=== PATIENT | male | born 1945 ===

== ENCOUNTER 2018-07-14 08:40 | Inpatient (IN) | payer OTHER ==
[2018-07-19] MEDS ORDERED: ACETAMINOPHEN 500 MG TAB PO PRN (21:38)
[2018-07-19] MEDS ORDERED: BISACODYL 10 MG SUPP PR PRN (21:42)
[2018-07-19] MEDS ORDERED: POLYETHYLENE GLYCOL 3350 17 GM PKT PO PRN (21:42)
[2018-07-19] MEDS ORDERED: SENNOSIDES 1 TAB PO PRN (21:43)
[2018-07-19] MEDS: ENALAPRIL MALEATE 5 MG TAB PO SCH (21:56)
[2018-07-20 08:30] LABS: PLATELET COUNT 162 10^3/uL (150-400)
[2018-07-20] MEDS: ATORVASTATIN CALCIUM 40 MG TAB PO SCH (08:59)
[2018-07-20] MEDS: ASPIRIN EC 81 MG TAB PO SCH (09:00)
[2018-07-20] MEDS ORDERED: Herbals/Supplements -Info Only PO SCH (09:00)
[2018-07-20] MEDS: METOPROLOL SUCCINATE XR 25 MG TAB PO SCH (09:01)
--- NOTE | 2018-07-20 10:50 | PDGENHP ---
History and Physical History and Physical: Post admission physician evaluation and rehabilitation treatment plan Date Admit: 07/19/2018 Date and Time Eval: 07/20/2018 at 10:00 a.m. Referring Facility: [facility] Referring MD: Dr. 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 He was initially treated at the [facility] where he had an NIH stroke scale of 24. Stroke was demonstrated on MRI, patient was treated with IV tPA 2 hr after onset of symptoms and had a follow-up mechanical thrombectomy with partial revascularization. The cause of the embolic stroke is thought to be atherosclerotic or cardioembolic. It was complicated by small secondary hemorrhagic transformation. His course was also complicated by pneumonia of unknown etiology or bacteria treated with IV antibiotics with resolution. Additional studies included carotid and vertebral artery Doppler was stenosis of the right internal carotid artery at 50%. Recommending follow up with repeat Doppler in 1 year. 24 hr rhythm monitoring has not shown paroxysmal atrial fibrillation. He had a transthoracic echocardiogram that was reportedly normal. He was admitted to [facility] on June 19, 2018 after exhibiting progressive improvement of his right-sided hemiplegia. He had persistent global aphasia and right-sided weakness. In rehabilitation, he improved his right-sided strength but was still noted to have facial asymmetry. He had severe aphasia, and it was unclear how much safety awareness he had. From a functional standpoint he was walking without supervision and without assistive devices. He was not yet doing stairs which are required at his house. He was reportedly doing ADLs independently, but IADLs are unknown. He has severe global aphasia with stereotyped speech. He was displaying poor awareness of his speech issues. They reported that his yes/no answers were almost fully reliable. 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 Limited speech therapy in Salvadorean was available. He was reportedly incontinent in bladder, continent in bowel. He was eating food of a normal texture without aspiration. He had a week long heart monitor that showed 3 self resolving episodes of ventricular tachycardia and Cardiology consult recommended the use of metoprolol 12.5 mg daily and the echocardiogram did not show any dyskinesia but they recommended a follow-up nuclear stress test. Receiving aspirin for prophylaxis. They report that hypertension was managed with 5 mg of enalapril. They also note that on June 24 he had signs of sepsis of unknown origin thought to be related to a prostatitis when blood cultures came back positive for multi sensitive E coli that was treated with oral ciprofloxacin, treated for 3 weeks ending July 15. Oral maxillofacial consult determined that it was not facial in origin. There was some question about a history of prostate cancer biopsied 6 years ago followed up with PSA monitoring but this history was not complete. The patient was to return to the [place] with the help of his , intensive speech therapy and multidisciplinary evaluation for safety. Functional History: Reportedly independent in all aspects and driving. Please see above for current functional status. ROS: Unable to complete accurately, but determined that the patient denies any new shortness of breath or chest pain, any new numbness, tingling, or weakness. Remainder of review systems could not be completed because of aphasia. Precautions: None Active Comorbidities: Hemiparesis PMH/PSH: History of appendectomy, meniscectomy, cholecystectomy, hypertension. also confirms a history of prostate cancer monitored by PSA by Dr. Mixon. denies a history of nephrolithiasis. Family Hx: No neurological issues in the family Social Hx: Unable to obtain from the patient because of aphasia. Reportedly , lives in the [place] area, has stairs in the house. confirms that she is available for assistance after discharge, May requested additional assistance and outpatient therapies. Endorses that the patient drinks half a bottle wine daily plus a shot of whiskey at night or 2-[address] of half bottle of wine. They live in [facility]. Denies tobacco use or drug use. Allergies: No known drug allergies, per spouse Pre-Hosp Meds: Unknown, spouse asked us to check with Dr. Mixon Admit Meds: Aspirin 100 mg once daily in the morning orally Amlodipine 2.5 mg once daily orally Atorvastatin 80 mg once daily in the morning Enalapril 5 mg once daily in the evening Metoprolol extended release 12.5 mg once daily in the morning Fig syrup 15 mL once daily in the morning Acetaminophen equivalent 1000 mg p.r.n. Maximum 4 times a day Picosulfate 5 mg p.r.n. Maximum twice daily Physical Exam: PHYSICAL EXAM: VS: Reviewed, slightly hypertensive at 145/80, otherwise normal and please see the medical record GEN: Normally developed, resting in bed, NAD EYES: Anicteric, PERRL EARS, NOSE, MOUTH, THROAT: MMM, normal dentition CV: Heart RRR, normal S1 and S2, no murmurs appreciated, no LE edema, extremities warm. No carotid bruits. RESP: Breathing comfortably, lungs CTAB no wrr GI: Abd with +BS, non distended : No vidales in place MSK: no contracture noted, no gross deformities SKIN: no rashes or skin breakdown noted PSYCH: appropriate, pleasant, cooperative; normal mood, affect and thought content HEME/LYMPH: No supraclavicular lymphadenopathy NEURO: Mental status: The patient is alert; he had severe global aphasia, expressive appeared worse than receptive. He was able to understand simple phrases and answer yes no questions with fairly good reliability, approximately 75%. His speech was stereotyped. He did not understand complex phrases. Cranial Nerves II-XII were intact and symmetric bilaterally, including no diplopia, with the exception of a mild facial droop on the right. Strength was 5/5 and on the left-sided biceps, triceps, wrist extensors, finger flexors, finger abductors, as well as hip flexors, knee extensors, ankle dorsiflexors, plantarflexors, and EHL. On the right side, strength was approximately 4/5 in the lower limb in those muscles, 5/5 in the upper limb. Reflexes were 2+ symmetric in bi, tri, BR, patella, and absent at the achilles with absent Hoffmans. No spasticity. Sensation was intact to light touch in the left-sided hand and foot, but decreased on the right side per his report. Rapid alternating movements was decreased on the right compared to the left. Finger to nose testing was normal without dysmetria or tremor. He was unable to do a three-part command. He participated in one-step commands fairly easily. Results Review: Imaging reports were reviewed but in Urdu, up loading images to PACS for viewing. Assessment and Plan: This is a very pleasant 72-year-old male being repatriated to the [place] after suffering a left-sided MCA stroke on June 02, 2018, in [place] status post IV tPA and mechanical thrombectomy with mild hemorrhagic transformation, now status post some inpatient rehabilitation in [place]. He has impairments in cognition and communication as well as significant concern for safety awareness. Impairments in mobility and self- care are higher level impairments mostly involving stair navigation and IADLs. For safe discharge home, he will need intensive therapy from PT, OT, and speech at 60 min per day 5-7 days per week for duration of 5-7 days with transition to outpatient speech therapy at a minimum with possibly other services involved as well. Goal is to transfer home with supervision from his spouse. We will also coordinate medical hand off to care providers in the [facility]. Status post left-sided MCA stroke on June 02, 2018 with right-sided hemiparesis, global aphasia, impairments in mobility, self-care, cognition. Embolic stroke with unclear etiology with asymptomatic carotid stenosis, no clear cardiac cause with no atrial fibrillation noted on 1 week of monitoring, normal echocardiogram * PT, OT, speech as noted above to treat impairments in mobility, self-care, and cognition and communication. * Established best practices for communicating with patient and for patient to make needs known * Safety evaluation * Plan to discuss fluoxetine for stroke recovery with patient's family Secondary stroke prevention including aspirin and blood pressure control * Follow-up vertebral and carotid artery Doppler in May 2019 * Continue atorvastatin 80 mg daily * Aspirin daily Cardiac issues: Etiology of stroke was unclear. Noted to have some runs of ventricular tachycardia on 1 week of monitoring and was started on a beta- stephen. Outside ECG in hard chart for reference. * Continue metoprolol for now, 12.5 mg daily * Patient will need a myocardial perfusion scan or nuclear stress test pr discharge recommendations * Follow-up with PCP and Cardiology in the [facility] to assess the plan * Note that extensive records from prior hospitalizations are included an electronic format with the hard chart Hypertension, primary: Noted to be hypertensive and notes indicate that is controlled with enalapril 5 mg daily, however amlodipine 2.5 mg daily was also on the discharge medications * Continue blood pressure control with amlodipine 2.5 mg daily in the morning and enalapril 5 mg once daily * Monitor, adjust medications as needed * Note that he is also on metoprolol 12.5 mg daily as well Bladder incontinence: Unclear etiology at this point, could be related to stroke, benign prostatic hypertrophy, or possible history of prostate cancer with complication * Obtain more information from family * Check postvoid residuals * Follow up with PCP regarding possible history of prostate cancer Anemia: Noted on admission labs, mild, etiology unknown * Checking reticulocyte count ID: History of E coli bacteremia with suspected prostatic origin treated with IV ceftriaxone on oral ciprofloxacin. History of prostate cancer followed by Dr. Byrne. * Monitor and try to get additional history on prostate. Code Status: Full Proph: No need for DVT prophylaxis at this point as he has relatively good mobility. Continue to monitor closely Skin: No skin breakdown. Continue to monitor closely ELOS/ Dispo: 5-7 days, goal to discharge home with family and caregivers assistance. Goal for outpatient therapies. Contacted Dr. Byrne's office for recent notes, to coordinate care. Awaiting fax. The patient is medically stable for participation in inpatient rehabilitation. I have reviewed the Preadmission Screen, and do not identify any relevant changes in the patients status since this was completed. The patient is at high risk for falls, aspiration, possibly poor safety awareness. Rehab plan above to address. A total of 120 min was spent on the floor in the care of the patient, the majority of which was spent in the counseling and coordination of care regarding [place], clarifying medical history, counseling family and patient about rehabilitation.
--- NOTE | 2018-07-20 12:28 | PDOREHIP ---
Admission [facility] - Admission - 3 Day Assessment Period Admission Date/Day 1: 07/19/18 Day 2: 07/20/18 Day 3: 07/21/18 - Active Diagnoses Comorbidities and Co-existing Conditions at Admission: 74639. None of the Above - Skin Conditions Unhealed Pressure Ulcer (1 or more/Stage 1 or >)-Admission: 0. No
[2018-07-20] MEDS: ENALAPRIL MALEATE 5 MG TAB PO SCH (19:57)
[2018-07-21] MEDS: ASPIRIN EC 81 MG TAB PO SCH (09:05)
[2018-07-21] MEDS: ATORVASTATIN CALCIUM 40 MG TAB PO SCH (09:05)
[2018-07-21] MEDS: METOPROLOL SUCCINATE XR 25 MG TAB PO SCH (09:06)
--- NOTE | 2018-07-21 16:11 | SOAPPROG ---
SOAP Progress Note Assessment/Plan: Assessment: 72-year-old male s/p left MCA stroke June 02, 2018, in [place] status post IV tPA and mechanical thrombectomy with mild hemorrhagic transformation, now status post some inpatient rehabilitation in [facility]. Initiating intensive therapy from PT, OT, and speech at 60 min per day 5-7 days per week for duration of 5-7 days with transition to outpatient speech therapy at a minimum with possibly other services involved as well. Status post left-sided MCA embolic stroke on June 02, 2018 with mild right hemiparesis, mild cognitive impairment and severe global aphasia. * Initial FIM this date is 88. Patient is I with mobility in his room and will soon be independent on the unit. Good prognosis ofr independence with stairs before D/C. He is Independent with self care, grooming and hygiene and dressing. Mild residual hand weakness not significantly impacting function. * Cont PT, OT, speech as noted above to treat impairments in mobility, self-care , and cognition and communication. * Established best practices for communicating with patient and for patient to make needs known * Impairments in mobility and self-care are higher level impairments mostly involving stair navigation and IADLs. Cont Safety evaluation. Aphasia: Extreme expressive > receptive language ability. He needs context. Also with severe speech apraxia. Cont ST. Anticipate outpt speech therapy needs. Secondary stroke prevention including aspirin and blood pressure control * Follow-up vertebral and carotid artery Doppler in May 2019 * Continue atorvastatin 80 mg daily * Aspirin daily Cardiac issues: Etiology of stroke unclear. Some runs of ventricular tachycardia on 1 week of monitoring and so was started on a beta-stephen. No Afib. Outside ECG in hard chart for reference. * Continue metoprolol for now, 12.5 mg daily * Patient will need a myocardial perfusion scan or nuclear stress test pr discharge recommendations * Follow-up with PCP and Cardiology in the [place] to assess the plan * Note that extensive records from prior hospitalizations are included an electronic format with the hard chart Hypertension, primary: Noted to be hypertensive and notes indicate that is controlled with enalapril 5 mg daily, however amlodipine 2.5 mg daily was also on the discharge medications * Continue blood pressure control with amlodipine 2.5 mg daily in the morning and enalapril 5 mg once daily. Today 119-141/67-70 * Monitor, adjust medications as needed * Note that he is also on metoprolol 12.5 mg daily Bladder incontinence: Unclear etiology at this point, could be related to stroke, benign prostatic hypertrophy, or possible history of prostate cancer with complication * Obtain more information from family * Check postvoid residuals * Follow up with PCP regarding possible history of prostate cancer Anemia: Hgb 12.2 noted on admission labs, mild, etiology unknown. Retic count WNL 2.28% ID: History of E coli bacteremia with suspected prostatic origin treated with IV ceftriaxone on oral ciprofloxacin. * History of prostate cancer followed by Dr. Byrne. * Monitor and try to get additional history on prostate. Code Status: Full Proph: No need for DVT prophylaxis at this point as he is adequately mobile. Continue to monitor closely Skin: No skin breakdown. Continue to monitor closely ELOS/ Dispo: 5-7 days, goal to discharge home with family and caregivers assistance and supervision, and transition to outpatient therapies, PT, OT and ST. He will also benefit fro OT prior to consideration for return to [place]. Inpatient multidisciplinary staffing was attended. A total of 60 min was spent on the floor in the care of the patient, the majority of which was spent in the counseling and coordination of care regarding transition from inpatient to outpatient given his quick rise to independence in mobility and self-care. 07/21/18 16:22 Subjective: No distress, participating in therapy No F/C/CP/SOB/N/V/D/C Anxious regarding incontinence at HS, which makes it hard for him to sleep. Objective: Vital Signs Temp Pulse Resp BP Pulse Ox 36.8 C 63 16 119/70 93 07/21/18 05:30 07/21/18 09:06 07/21/18 05:24 07/21/18 09:06 07/21/18 05:24 Laboratory Results 07/20/18 06:20 07/20/18 06:20 07/20/18 07/21/18 07/22/18 05:59 05:59 05:59 Intake Total 500 1000 500 Output Total 300 600 Balance 200 400 500 Physical Exam - Physical Exam General Appearance: alert, no apparent distress Neck: supple Respiratory: lungs clear Cardiac/Chest: regular rate, rhythm Skin: normal color, warm/dry Neuro/Psych: alert, normal mood/affect, abnormal gait (slight R foot drop. ), aphasia (severe), motor weakness (mild R hemiparesis), cognition abnormalities, speech abnormalities (apraxia), depressed affect (anxious) ICD10 Worksheet Patient Problems: Problems Problem Status Onset Aphasia Acute Cerebrovascular accident (CVA) involving left middle cerebral artery territory Acute
[2018-07-21] MEDS: ENALAPRIL MALEATE 5 MG TAB PO SCH (20:44)
[2018-07-22] MEDS: ASPIRIN EC 81 MG TAB PO SCH (07:59)
[2018-07-22] MEDS: ATORVASTATIN CALCIUM 40 MG TAB PO SCH (07:59)
[2018-07-22] MEDS: METOPROLOL SUCCINATE XR 25 MG TAB PO SCH (07:59)
--- NOTE | 2018-07-22 12:33 | SOAPPROG ---
SOAP Progress Note Assessment/Plan: Assessment: 72-year-old male s/p left MCA stroke June 02, 2018, in [place] status post IV tPA and mechanical thrombectomy with mild hemorrhagic transformation, Status post left-sided MCA embolic stroke on June 02, 2018 with mild right hemiparesis, mild cognitive impairment and severe global aphasia. * Initial FIM this date is 88. Patient is I with mobility in his room and will soon be independent on the unit. Good prognosis ofr independence with stairs before D/C. He is Independent with self care, grooming and hygiene and dressing. Mild residual hand weakness not significantly impacting function. * Cont PT, OT, speech as noted above to treat impairments in mobility, self-care , and cognition and communication. * Established best practices for communicating with patient and for patient to make needs known * Impairments in mobility and self-care are higher level impairments mostly involving stair navigation and IADLs. Cont Safety evaluation. Aphasia: Extreme expressive > receptive language ability. He needs context. Also with severe speech apraxia. Cont ST. Anticipate outpt speech therapy needs. Secondary stroke prevention including aspirin and blood pressure control * Follow-up vertebral and carotid artery Doppler in May 2019 * Continue atorvastatin 80 mg daily * Aspirin daily Cardiac issues: Etiology of stroke unclear. Some runs of ventricular tachycardia on 1 week of monitoring and so was started on a beta-stephen. No Afib. Outside ECG in hard chart for reference. * Continue metoprolol for now, 12.5 mg daily * Patient will need a myocardial perfusion scan or nuclear stress test pr discharge recommendations * Follow-up with PCP and Cardiology in the [place] to assess the plan * Note that extensive records from prior hospitalizations are included an electronic format with the hard chart Hypertension, primary: Noted to be hypertensive and notes indicate that is controlled with enalapril 5 mg daily, however amlodipine 2.5 mg daily was also on the discharge medications * Continue blood pressure control with amlodipine 2.5 mg daily in the morning and enalapril 5 mg once daily. Today 119-141/67-70 * Monitor, adjust medications as needed * Note that he is also on metoprolol 12.5 mg daily Bladder incontinence initially now transitioning into frequent voiding (~6times overnight) of low volumes at HS, and retention (high PVR's ~150cc after 150cc void)). Incontinence was likely overflow. Pt with known Prostate CA (treatment hx unclear) with rising PSA over past year monitored by his PCP. Unclear if there is prior hx of BPH, incontinence or retention. * Initiate trial of flomax to see if there is change in PVR's, urinary frequency and quality of sleep * Obtain more information from family * Follow up with PCP regarding treatment plan for prostate cancer Anemia: Hgb 12.2 noted on admission labs, mild, etiology unknown. Retic count WNL 2.28% ID: History of E coli bacteremia with suspected prostatic origin treated with IV ceftriaxone on oral ciprofloxacin. * History of prostate cancer followed by Dr. Byrne. * Monitor and try to get additional history on prostate. Code Status: Full Proph: No need for DVT prophylaxis at this point as he is adequately mobile. Continue to monitor closely Skin: No skin breakdown. Continue to monitor closely ELOS/ Dispo: 5-7 days, goal to discharge home with family and caregivers assistance and supervision, and transition to outpatient therapies, PT, OT and ST. He will also benefit fro OT prior to consideration for return to [place]. Inpatient multidisciplinary staffing was attended. A total of 60 min was spent on the floor in the care of the patient, the majority of which was spent in the counseling and coordination of care regarding transition from inpatient to outpatient given his quick rise to independence in mobility and self-care. 07/22/18 12:26 Subjective: anxious regarding urinary frequency and poor sleep No F/C/CP/SOB/N/V/D/ Objective: Vital Signs Temp Pulse Resp BP Pulse Ox 36.5 C 66 14 112/72 92 07/22/18 07:48 07/22/18 07:59 07/22/18 07:48 07/22/18 07:59 07/22/18 07:48 Laboratory Results 07/20/18 06:20 07/20/18 06:20 07/21/18 07/22/18 07/23/18 05:59 05:59 05:59 Intake Total 1000 742 340 Output Total 600 150 Balance 400 742 190 Physical Exam - Physical Exam General Appearance: alert, no apparent distress Neck: supple Respiratory: lungs clear Cardiac/Chest: regular rate, rhythm Abdomen: normal bowel sounds, non-tender Skin: normal color, warm/dry Extremities: No pedal edema, No calf tenderness Neuro/Psych: alert, normal mood/affect, oriented x 3, aphasia, motor weakness ( slight R hemiparesis. Independent with mobility) ICD10 Worksheet Patient Problems: Problems Problem Status Onset Aphasia Acute Cerebrovascular accident (CVA) involving left middle cerebral artery territory Acute
[2018-07-22] MEDS: TAMSULOSIN HCL 0.4 MG CAP PO SCH (21:04)
[2018-07-22] MEDS: ENALAPRIL MALEATE 5 MG TAB PO SCH (21:04)
[2018-07-23] MEDS: ASPIRIN EC 81 MG TAB PO SCH (08:10)
[2018-07-23] MEDS: ATORVASTATIN CALCIUM 40 MG TAB PO SCH (08:10)
[2018-07-23] MEDS: METOPROLOL SUCCINATE XR 25 MG TAB PO SCH (08:10)
--- NOTE | 2018-07-23 14:52 | SOAPPROG ---
SOAP Progress Note Assessment/Plan: Assessment: 72-year-old male s/p left MCA stroke June 02, 2018, s/p IV tPA and mechanical thrombectomy with mild hemorrhagic transformation, Status post left-sided MCA embolic stroke on June 02, 2018 with mild right hemiparesis, mild cognitive impairment and severe global aphasia. * Initial FIM 07/21 is 88. Patient is I with mobility in his room and will soon be independent on the unit. Good prognosis for independence with stairs before D/C. He is Independent with self care, grooming and hygiene and dressing. Mild residual hand weakness not significantly impacting function. * Cont PT, OT, speech as noted above to treat impairments in mobility, self-care , and cognition and communication. * Established best practices for communicating with patient and for patient to make needs known, still challenging. * Impairments in mobility and self-care are higher level impairments mostly involving stair navigation and IADLs. Cont Safety evaluation. Aphasia: Extreme expressive > receptive language ability. He needs context. Also with severe speech apraxia. Cont ST. Anticipate outpt speech therapy needs. Secondary stroke prevention including aspirin and blood pressure control * Follow-up vertebral and carotid artery Doppler in May 2019 * Continue atorvastatin 80 mg daily * Aspirin daily Bladder incontinence initially now transitioning into frequent voiding ( improved fro 6 privious night to 4 last night) of low volumes at HS, and retention (high PVR's ~150cc after 150cc void)). Incontinence was likely overflow. Pt with known Prostate CA (treatment hx unclear) with rising PSA over past year monitored by his PCP. Unclear if there is prior hx of BPH, incontinence or retention. Per pt was treated with ABx's for prostate infection while in rehab in [facility]. * Initiated trial of Flomax 07/22 with significant decrease in episodes of nocturia, (6 sown to 4), and a change in PVR's (150 down to 59), and subjective improvement in quality of sleep. Cont to monitor these parameters. * Primary medical team to Follow up with Dr Manzanares regarding treatment plan for prostate cancer and current urinary retention. ID: History of E coli bacteremia with suspected prostatic origin treated with IV ceftriaxone on oral ciprofloxacin. * History of prostate cancer followed by Dr. Byrne. * Monitor and try to get additional history on prostate. Cardiac issues: Etiology of stroke unclear. Some runs of ventricular tachycardia on 1 week of monitoring and so was started on a beta-stephen. No Afib. Outside ECG in hard chart for reference. * Continue metoprolol for now, 12.5 mg daily * Patient will need a myocardial perfusion scan or nuclear stress test pr discharge recommendations * Follow-up with PCP and Cardiology in the [facility] to assess the plan * Note that extensive records from prior hospitalizations are included an electronic format with the hard chart Hypertension, primary: Noted to be hypertensive and notes indicate that is controlled with enalapril 5 mg daily, however amlodipine 2.5 mg daily was also on the discharge medications * Continue blood pressure control with amlodipine 2.5 mg daily in the morning and enalapril 5 mg once daily. Today 119-141/67-70 * Monitor, adjust medications as needed * Note that he is also on metoprolol 12.5 mg daily Anemia: Hgb 12.2 noted on admission labs, mild, etiology unknown. Retic count WNL 2.28% Code Status: Full Proph: No need for DVT prophylaxis at this point as he is adequately mobile. Continue to monitor closely Skin: No skin breakdown. Continue to monitor closely ELOS/ Dispo: 5-7 days, goal to discharge home with family and caregivers assistance and supervision, and transition to outpatient therapies, PT, OT and ST. He will also benefit fro OT prior to consideration for return to Driving. Inpatient multidisciplinary staffing was attended. A total of 60 min was spent on the floor in the care of the patient, the majority of which was spent in the counseling and coordination of care regarding transition from inpatient to outpatient given his quick rise to independence in mobility and self-care. 07/23/18 14:55 Subjective: No new problems Bladder issue reviewed with pt and : Recommend frequent scheduled voids, standing if possible, cont trial of Flomax, F/U with Dr Manzanares, consider Urological F/U post DC No F/C/CP/SOB/N/V/D/C Objective: Vital Signs Temp Pulse Resp BP Pulse Ox 36.4 C 71 18 111/66 93 07/23/18 09:09 07/23/18 08:10 07/23/18 08:07 07/23/18 08:10 07/23/18 08:07 Laboratory Results 07/20/18 06:20 07/20/18 06:20 07/22/18 07/23/18 07/24/18 05:59 05:59 05:59 Intake Total 742 1120 720 Output Total 625 Balance 742 972 720 Physical Exam - Physical Exam General Appearance: alert, no apparent distress Neck: supple Respiratory: lungs clear Cardiac/Chest: regular rate, rhythm Skin: normal color, cyanosis Extremities: No pedal edema, No calf tenderness Neuro/Psych: alert, normal mood/affect, oriented x 3, abnormal gait (slight R foot drop), aphasia, motor weakness (mild R hemipareis, mild apraxia), cognition abnormalities, other (no acute changes) ICD10 Worksheet Patient Problems: Problems Problem Status Onset Aphasia Acute Cerebrovascular accident (CVA) involving left middle cerebral artery territory Acute
[2018-07-23] MEDS: TAMSULOSIN HCL 0.4 MG CAP PO SCH (19:17)
[2018-07-23] MEDS: ENALAPRIL MALEATE 5 MG TAB PO SCH (19:18)
[2018-07-24] MEDS: ATORVASTATIN CALCIUM 40 MG TAB PO SCH (08:33)
[2018-07-24] MEDS: ASPIRIN EC 81 MG TAB PO SCH (08:33)
[2018-07-24] MEDS: METOPROLOL SUCCINATE XR 25 MG TAB PO SCH (08:34)
[2018-07-24 08:37] VITALS: BP 130/75
--- NOTE | 2018-07-24 11:28 | SOAPPROG ---
SOAP Progress Note Assessment/Plan: Assessment: 72-year-old male s/p left MCA stroke June 02, 2018, s/p IV tPA and mechanical thrombectomy with mild hemorrhagic transformation, Status post left-sided MCA embolic stroke on June 02, 2018 with mild right hemiparesis, mild cognitive impairment and severe global aphasia. * Initial FIM 07/21 is 88 on 07/21/2018. Patient is I with mobility in his room. He is Independent with self care, grooming and hygiene, and dressing. Mild residual hand weakness not significantly impacting function. * He has subsequently ambulated 1000 ft indoors and outdoors with no device. He has accomplished a car transfer independently with cues. He has climbed and descended 18 stairs with 1 rail independently. He scored 52/56 on the Ramírez balance inventory, 23/24 on the Dynamic Gait in dex, and timed up and go was 8.5 sec. * Cont PT, OT, speech as noted above to treat impairments in mobility, self-care , and cognition and communication. * Established best practices for communicating with patient and for patient to make needs known, still challenging. * Impairments in mobility and self-care are higher level impairments mostly involving stair navigation and IADLs. Cont Safety evaluation. Aphasia: Extreme expressive > receptive language ability. He needs context. Also with severe speech apraxia. Cont ST. Anticipate outpt speech therapy needs. Secondary stroke prevention including aspirin and blood pressure control * Follow-up vertebral and carotid artery Doppler in May 2019 * Continue atorvastatin 80 mg daily * Aspirin daily Bladder incontinence initially now transitioning into frequent voiding ( nocturia improved from 6 on 07/21/2018 to 3-4 subsequently) of low volumes at HS , and retention (high PVR's ~150cc after 150cc void)). Incontinence was likely overflow. Pt with known Prostate CA (treatment hx unclear) with rising PSA over past year monitored by his PCP. Unclear if there is prior hx of BPH, incontinence or retention. Per pt was treated with ABx's for prostate infection while in rehab in [place]. * Initiated trial of Flomax 07/22 with significant decrease in episodes of nocturia, (6 sown to 3 - 4), and a change in PVR's (150 down to 59), and subjective improvement in quality of sleep. Cont to monitor these parameters. * Primary medical team to Follow up with Dr Manzanares regarding treatment plan for prostate cancer and current urinary retention. ID: History of E coli bacteremia with suspected prostatic origin treated with IV ceftriaxone and oral ciprofloxacin. * History of prostate cancer followed by Dr. Byrne. * Monitor and try to get additional history on prostate. Cardiac issues: Etiology of stroke unclear. Some runs of ventricular tachycardia on 1 week of monitoring and so was started on a beta-stephen. No Afib. Outside ECG in hard chart for reference. * Continue metoprolol for now, 12.5 mg daily * Patient will need a myocardial perfusion scan or nuclear stress test pr discharge recommendations * Follow-up with PCP and Cardiology in the [facility] to assess the plan * Note that extensive records from prior hospitalizations are included an electronic format with the hard chart Hypertension, primary: Noted to be hypertensive and notes indicate that is controlled with enalapril 5 mg daily, however amlodipine 2.5 mg daily was also on the discharge medications * Continue blood pressure control with amlodipine 2.5 mg daily in the morning and enalapril 5 mg once daily. Adequate control. * Monitor, adjust medications as needed * Note that he is also on metoprolol 12.5 mg daily Anemia: Hgb 12.2 noted on admission labs, mild, etiology unknown. Retic count WNL 2.28% Code Status: Full Proph: No need for DVT prophylaxis at this point as he is adequately mobile. Continue to monitor closely Skin: No skin breakdown. Continue to monitor closely DISPOSITION: Attended family meeting. Patient, his and several friends and family members were present. Discussed condition and plan for discharge. He will have outpatient speech therapy, as intensive as possible. 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 He was recommended to have no driving and to have supervision in the kitchen but otherwise is independent for ADLs and mobility. He should have a pre driving screen approximately 6 months after the stroke. He should have outpatient occupational therapy to work on right hand dexterity and dominance training. Discharge home with today, 07/24/2018. FOLLOW-UP: Follow up with Cardiology regarding occult CVA and need for implanted director of cardiac rehabilitation. Follow up with Cardiology regarding possible coronary artery disease and episodes of V-tach while hospitalized in [place]. Follow-up with Neurology and vascular surgery regarding carotid stenosis. Should have a repeat carotid ultrasound in May of 2019. Primary care provider is Dr. Mixon. 07/24/18 12:38 Subjective: Vague complaint about right leg. Denies pain, cough, dyspnea, fevers or chills. Sleeping well. PT reports that he has a foot slap with decreased eccentric control of the right foot. He scored 52/56 on the Ramírez balance inventory. Objective: Vital Signs Temp Pulse Resp BP Pulse Ox 36.5 C 61 16 130/75 H 94 07/24/18 08:00 07/24/18 08:34 07/24/18 08:00 07/24/18 08:34 07/24/18 08:00 Laboratory Results 07/20/18 06:20 07/20/18 06:20 07/23/18 07/24/18 07/25/18 05:59 05:59 05:59 Intake Total 1120 1185 Output Total 625 Balance 495 1185 - Time Spent With Patient Time Spent With Patient: Greater than 35 min floor time today, including more than 50% of time in coordination of care and counseling patient and family during family meeting. Physical Exam - Physical Exam General Appearance: WD/WN, alert, no apparent distress Respiratory: normal breath sounds, No crackles, No rhonchi, No wheezing Cardiac/Chest: regular rate, rhythm, No edema, No diastolic murmur, No systolic murmur Skin: normal color, warm/dry Extremities: other (Right leg nontender) Neuro/Psych: alert, normal mood/affect, aphasia (Simple social phrases are intact. Beyond that he is unable to verbally express himself. He uses appropriate gestures. He appears to understand spoken language.) ICD10 Worksheet Patient Problems: Problems Problem Status Onset Aphasia Acute Cerebrovascular accident (CVA) involving left middle cerebral artery territory Acute
--- NOTE | 2018-07-24 12:19 | PDOREHIP ---
Admission [facility] - Admission - 3 Day Assessment Period Admission Date/Day 1: 07/19/18 Day 2: 07/20/18 Day 3: 07/21/18 Discharge [facility] - Discharge - 3 Day Assessment Period 2 Days Prior to Anticipated Discharge Date: 07/22/18 1 Day Prior to Anticipated Discharge Date: 07/23/18 Anticipated Discharge Date: 07/24/18 - Discharge Skin Conditions Unhealed Pressure Ulcer (1 or more/Stage 1 or >)-Discharge: 0. No
--- NOTE | 2018-07-24 14:25 | GDS ---
[f rep st] DISCHARGE SUMMARY ADMITTING DIAGNOSIS: Cerebrovascular accident with right-sided weakness and expressive greater than receptive aphasia. DISCHARGE DIAGNOSES: 1. Cerebrovascular accident with right-sided weakness and expressive greater than receptive aphasia. 2. Urinary retention. 3. Hypertension. 4. Anemia. COMPLICATIONS: There were none. PROCEDURES: There were none. CONSULTATIONS: There were none. HISTORY AND HOSPITAL COURSE: This patient had a cerebrovascular accident on June 02, 2018, while he was traveling in [facility]. It was an embolic left middle cerebral artery stroke. He had a fall with right-sided hemiplegia and global aphasia. He was treated initially at the [facility] in [place]. His NIH Stroke Scale [id number]. He was treated with IV tPA and subsequently had a mechanical thrombectomy with partial revascularization. The stroke was cryptogenic, thought to be either atherosclerotic or cardioembolic. He had a small secondary hemorrhagic transformation. He had pneumonia and was treated with IV antibiotics. In the hospital in [facility], carotid and vertebral artery Doppler studies showed stenosis of the right internal carotid artery at 50%. He had 24-hour rhythm monitoring which did not show atrial fibrillation. He had a transthoracic echocardiogram which was normal. He was transferred to [facility] for rehabilitation on June 19, 2018. He had persistent global aphasia and right-sided weakness. His right -sided weakness had improved quite a bit, though he still had facial asymmetry. His aphasia remained severe. He was walking without supervision and without assistive devices. He had not climbed or descended stairs. He was independent with activities of daily living. There was a week-long cardiac monitoring which showed 3 brief self-resolving episodes of ventricular tachycardia. He was begun on metoprolol 12.5 mg daily. It was recommended that he have a followup nuclear stress test. He was continued on aspirin for cardiovascular and cerebrovascular prophylaxis. There was hypertension which was treated with enalapril and amlodipine. On June 24 he had signs of sepsis of unknown origin. It was thought that he had prostatitis. Blood cultures were positive for multi-sensitive Escherichia coli, and he was treated with ciprofloxacin for 3 weeks, which was completed on July 15. Arrangements were made for him to return to the [facility] in to be admitted to [facility] inpatient rehabilitation for assessment and treatment and for arrangement for discharge to home with appropriate referrals. He did well in rehabilitation. His initial functional independence measure on 07/21/2018, was 88. This is consistent with assisted living level of care. He was independent with mobility in his room. He was independent with self-care including grooming, hygiene and dressing. There was mild residual hand weakness , and there was weakness of dorsiflexion of the right foot in eccentric movement resulting in a foot slap, especially when he was fatigued. He had continued improvement and was able to ambulate greater than 1000 feet indoors and outdoors with no device. He accomplished a car transfer independently with cues. He climbed and descended 18 stairs with 1 rail independently. He scored 52/56 on the Ramírez Balance Inventory and 23/24 on the Dynamic Gait Index, both of which were consistent with no excessive fall risk. He accomplished a Timed Up and Go test in 8.5 seconds, with the upper end of normal being 14 seconds. He received speech therapy for his aphasia. His expressive aphasia was profound. His receptive ability was much better. He also had severe speech apraxia. Regarding secondary stroke prevention, he was continued on aspirin and blood pressure control as well as atorvastatin. He had bladder incontinence initially. He was found to have elevated postvoid residuals, and his incontinence was considered likely to be overflow. He was begun on tamsulosin. He ceased to have incontinence, and his nocturia decreased in frequency from approximately 6 times per night to 3-4 times per night. Blood pressure was well controlled on enalapril plus amlodipine. He also had metoprolol 12.5 mg per day for his history of brief runs of ventricular tachycardia. He had anemia. His reticulocyte count was appropriate. DISCHARGE PLAN: He is discharging home with his . DIET: Regular. ACTIVITY: Ad tor, though he was recommended to not drive, to have supervision in the kitchen and to climb and descend stairs in a step-to step manner rather than [id number] manner if it is a set of stairs without rails. Otherwise, he can climb and descend stairs independently using 1 rail. 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 MEDICATIONS UPON DISCHARGE: 1. Amlodipine 2.5 mg p.o. daily. 2. Atorvastatin 80 mg p.o. daily. 3. Enalapril 5 mg p.o. at bedtime. 4. Metoprolol 12.5 mg p.o. daily. 5. Tamsulosin 0.4 mg p.o. at bedtime. ISSUES TO BE ADDRESSED AT FOLLOWUP: 1. Expressive and receptive aphasia. He will continue speech and language pathology on an outpatient basis. It is hoped that this can be intensive and done 5 days a week. 2. Functional status. He will continue PT and OT on an outpatient basis regarding right hand weakness and regarding the right foot slap. 3. Cryptogenic stroke and history of episodes of ventricular tachycardia. He will be referred to Cardiology for a 30-day event monitor to rule out occult atrial fibrillation and regarding the suggestion from his hospitalization in [facility] that he have a nuclear stress test to rule out myocardial ischemia. 4. Carotid stenosis 50% on the right. He should have a followup Doppler study of his vertebral and carotid artery system in May of 2019, and he can follow up with Neurology as well as Vascular Surgery regarding whether there is an indication for an interventional procedure. 5. Hypertension. Blood pressure is well controlled. He should follow up with primary care. 6. Urinary retention. Continue tamsulosin and follow up with primary care. 7. History of prostate cancer. This has been followed by his primary care doctor, and he can follow up again with primary care with consideration of referral to Urology. 8. Anemia. Advise repeat CBC in several weeks. Greater than 30 min were spent on this discharge summary including medication reconciliation, coordination of care, and counseling patient and family. /[id number]/MODL MTDD
== END 2018-07-24 16:27 | disposition home health service (06) | DRG 57 ==
LOC: BREH 07-19 20:40
PROVIDERS: ADMIT Internal Medicine; ATTEND Internal Medicine
PROC: F06Z3ZZ Aphasia Treatment (ICD-10-PCS; principal; 2018-07-19)
PROC: F07Z9FZ Gait Training/Functional Ambulation Treatment using Assistive, Adaptive, Supportive or Protective Equipment (ICD-10-PCS; principal; 2018-07-19)
PROC: F06Z6ZZ Communicative/Cognitive Integration Skills Treatment (ICD-10-PCS; principal; 2018-07-19)
DX: I69.351 Hemiplegia and hemiparesis following cerebral infarction affecting right dominant side (principal); I69.320 Aphasia following cerebral infarction; I69.318 Other symptoms and signs involving cognitive functions following cerebral infarction; R39.81 Functional urinary incontinence; D64.9 Anemia, unspecified; I47.2 Ventricular tachycardia; Z85.46 Personal history of malignant neoplasm of prostate
CPT/HCPCS: 92507-GN; 92523-GN; 92610-GN; 97032-GP; 97110-GP; 97112-GP; 97116-GP; 97161-GP; 97165-GO; 97530-GO; 97530-GP; 97535-GO; 99366-GN; 99366-GO

== ENCOUNTER → 2018-08-23 | Outpatient (CLI) | payer OTHER | LOC: BHFA 13:30 | PROVIDERS: ATTEND Internal Medicine Cardiovascular Disease | DX: I47.2 Ventricular tachycardia (principal); I48.91 Unspecified atrial fibrillation | CPT/HCPCS: 78452; 93017; 93225; 93226; A9500; J2785 ==